=== PATIENT | female | born 1970 | race African-American/Black ===

== ENCOUNTER 2018-04-08 13:08 | Emergency (ER) | payer MEDICARE, OTHER ==
[~2018-04-08] VITALS: Ht 165.1 cm; Wt 68.0 kg
[2018-04-08 14:42] VITALS: BP 131/76
== END 2018-04-08 18:37 | disposition home or self-care (01) ==
LOC: ER 13:12
DX: M54.5 Low back pain (principal); M54.2 Cervicalgia; R51 Headache; J45.909 Unspecified asthma, uncomplicated; I10 Essential (primary) hypertension; Z88.8 Allergy status to other drugs, medicaments and biological substances; V43.52XA Car driver injured in collision with other type car in traffic accident, initial encounter; Y93.89 Activity, other specified; Y99.8 Other external cause status; Y92.481 Parking lot as the place of occurrence of the external cause
CPT/HCPCS: 72100